=== PATIENT | female | born 1985 | race Caucasian/White ===

== ENCOUNTER 2017-08-10 07:25 | Day surgery (SDC) | payer MEDICAID ==
[~2017-08-10 07:25] MED LIST: CEFAZOLIN 1 GM/50 ML (PMX) 50 ML IVPB; SOD CHLORIDE 0.9% 1,000 ML IV
[2017-08-10] MEDS ORDERED: METOCLOPRAMIDE 10 MG INJ IV (10:30)
[2017-08-10] MEDS ORDERED: ONDANSETRON 4 MG INJ IV (10:30)
[2017-08-10] MEDS ORDERED: ALBUTEROL 0.083% (NEB) 2.5 MG/3 ML AMP HHN (10:30)
[2017-08-10] MEDS ORDERED: FENTAnyl 50 MCG/ML VIAL IV ×3 (10:30)
[2017-08-10] MEDS ORDERED: DIPHENHYDRAMINE 50 MG INJ IV (10:30)
[2017-08-10] MEDS ORDERED: ROPIVACAINE 0.5 % 30 ML VIAL (11:11)
[2017-08-10] MEDS ORDERED: FENTAnyl 50 MCG/ML VIAL (11:11)
[2017-08-10] MEDS ORDERED: SUGAMMADEX SODIUM 200 MG/2 ML VIAL IV (11:31)
[2017-08-10] MEDS ORDERED: PROPOFOL 20 ML (11:31)
[2017-08-10] MEDS ORDERED: CEFAZOLIN 1 GM INJ (11:31)
[2017-08-10] MEDS ORDERED: LIDOCAINE 100 MG SYRINGE (11:31)
[2017-08-10] MEDS ORDERED: SUCCINYLCHOLINE CHLORIDE 100 MG/5 ML SYG IV (11:31)
[2017-08-10] MEDS ORDERED: ROCURONIUM 50 MG INJ (11:31)
[2017-08-10] MEDS ORDERED: BUPIVACAINE 0.25% (MPF) 30 ML INJ (11:43)
[2017-08-10] MEDS: BUPIVACAINE 0.25% (MPF) 30 ML INJ (11:49)
[2017-08-10] MEDS: MEPERIDINE 25 MG INJ IV (12:22)
[2017-08-10] MEDS: HYDROmorphONE 1 MG/5 ML IV SYRINGE IV ×3 (12:31→12:50)
[2017-08-10] MEDS: HYDROCODONE/APAP (5/325) TAB PO (13:04)
== END 2017-08-10 15:00 | disposition home or self-care (01) ==
LOC: SDS 07:25
DX: K80.10 Calculus of gallbladder with chronic cholecystitis without obstruction (principal); E66.09 Other obesity due to excess calories
CPT/HCPCS: 47562; 84703; 88304